=== PATIENT | female | born 1940 | race Caucasian/White ===

== ENCOUNTER 2017-08-09 11:10 | Inpatient (IN) | payer OTHER ==
[~2017-08-09] VITALS: Ht 167.6 cm; Wt 101.8 kg
[2017-08-09] MEDS ORDERED: SODIUM CHLORIDE 0.9% 1,000 ML IVB ONE (11:53)
[2017-08-09 12:07] LABS: Basophils # (auto) 0.1 uL; Basophils % (auto) 0.8 % (0.0-2.0); Eosinophils # (auto) 0 uL; Hematocrit 54.5 % (36.0-46.0); Lymphocytes % (auto) 22.6 % (10.0-50.0); Mean Corpuscular Hemoglobin 32.5 pg (28.0-32.0); Mean Corpuscular Volume 98.5 fL (80.0-100.0); Monocytes # (auto) 1.2 uL; Monocytes % (auto) 8.9 % (0.0-12.0); Neutrophils # (auto) 9.1 uL; Neutrophils % (auto) 67.7 % (37.0-80.0); Nucleated Red Blood Cells % 0.2 %; Platelet Count (auto) 291 10^3/uL (140-450); Red Blood Cells 5.54 10^6/uL (4.0-5.20); Red Cell Distribution Width 15.6 % (11.8-14.3); White Blood Cell 13.4 10^3/uL (4.4-10.8)
[2017-08-09 12:30] LABS: BUN/Creatinine Ratio 30.9; Bilirubin, Total 1.5 mg/dL (0.2-1.0); Calcium 10.5 mg/dL (8.5-10.1); Magnesium 2.7 mg/dL (1.6-2.6); Potassium 3.7 mmol/L (3.5-5.1); Total Protein 9.5 g/dL (6.4-8.2)
[2017-08-09] MEDS ORDERED: SODIUM CHLORIDE 0.9% 1,000 ML IV ONE (13:30)
[2017-08-09] MEDS ORDERED: cefTRIAXone 1GM/10ml IVPUSH 10 ML IV ONE (13:30)
[2017-08-09 13:47] LABS: INR 1.23 (0.9-1.15); Partial Thromboplastin Time 30.9 sec (22.64-33.71); Prothrombin Time 13.4 sec (9.37-12.3)
[2017-08-09 13:53] LABS: Lactic Acid w/Reflex 3.3 mmol/L (0.4-2.0)
[2017-08-09 14:25] LABS: Urine Bacteria NONE SEEN /hpf (None Seen); Urine Blood Negative /uL (Negative); Urine Specific Gravity 1.024 (1.001-1.035); Urine WBC 1 /hpf (0 - 5)
[2017-08-09] MEDS ORDERED: PROMETHAZINE HCL 25 MG/ML 1ML IV PRN (15:15)
[2017-08-09] MEDS ORDERED: ACETAMINOPHEN 500 MG TAB PO PRN (15:15)
[2017-08-09] MEDS ORDERED: TEMAZEPAM 15 MG CAP PO PRN (15:15)
[2017-08-09] MEDS ORDERED: LABETALOL HCL 5 MG/ML ML 20ML VIAL IV PRN (15:15)
[2017-08-09] MEDS ORDERED: LORazepam 0.5 MG TAB PO PRN (15:15)
[2017-08-09] MEDS ORDERED: NITROGLYCERIN 0.4 MG SL TAB SL PRN (15:15)
[2017-08-09 15:31] LABS: Cholesterol 352 mg/dL (< 200); Creatine Kinase IFCC 55 U/L (26-192); HDL Cholesterol 43 mg/dL (40-59); LDL Cholesterol 275 mg/dL (< 100); Triglycerides 175 mg/dL (< 150)
[2017-08-09 15:42] LABS: Folate (Folic Acid) > 24.00 ng/mL (5.38-24)
[2017-08-09] MEDS ORDERED: ASPirin 81 mg TAB PO SCH (15:45)
[2017-08-09] MEDS: SODIUM CHLORIDE 0.9% 1,000 ML IV SCH (15:55)
[2017-08-09] MEDS ORDERED: LEVOFLOXACIN 500MG 100 ML IV ONE (16:00)
[2017-08-09] MEDS ORDERED: ASPirin 81 mg TAB NG ONE (16:30)
[2017-08-09] MEDS ORDERED: LORazepam 2MG/ML-1ML VIAL IV PRN (16:45)
[2017-08-09] MEDS ORDERED: AMLO5TAB2 PO (18:04)
[2017-08-09] MEDS ORDERED: TRAM50TA2 PO (18:04)
[2017-08-09] MEDS ORDERED: NAPR375T27 PO (18:04)
[2017-08-09] MEDS ORDERED: LEVO175T33 PO (18:04)
[2017-08-09 19:12] VITALS: BP 135/76
[2017-08-09] MEDS ORDERED: ACETAMINOPHEN 650 MG RECT SUPP PR PRN (19:15)
[2017-08-09 22:00] VITALS: BP 134/72
[2017-08-09] MEDS ORDERED: ATORVASTATIN 20 MG TAB PO SCH (22:00)
[2017-08-09] MEDS: ATORVASTATIN 20 MG TAB PO SCH (22:44)
[2017-08-09] MEDS: CLINDAMYCIN 600MG IV 50 ML IV SCH (22:44)
[2017-08-10] MEDS: SODIUM CHLORIDE 0.9% 1,000 ML IV SCH (03:34)
[2017-08-10 05:00] VITALS: BP 135/72
[2017-08-10] MEDS: CLINDAMYCIN 600MG IV 50 ML IV SCH ×3 (06:15→22:55)
[2017-08-10 07:27] LABS: Basophils # (auto) 0 uL; Basophils % (auto) 0.3 % (0.0-2.0); Eosinophils # (auto) 0 uL; Hematocrit 44.6 % (36.0-46.0); Hemoglobin 14.8 g/dL (12.2-16.2); Lymphocytes # (auto) 2.3 uL; Lymphocytes % (auto) 17.5 % (10.0-50.0); Mean Corpuscular Hemoglobin 33.1 pg (28.0-32.0); Mean Corpuscular Hgb Conc. 33.2 g/dL (32.0-36.0); Mean Corpuscular Volume 99.9 fL (80.0-100.0); Monocytes # (auto) 1.4 uL; Monocytes % (auto) 10.3 % (0.0-12.0); Neutrophils # (auto) 9.7 uL; Neutrophils % (auto) 71.9 % (37.0-80.0); Nucleated Red Blood Cells % 0.1 %; Platelet Count (auto) 222 10^3/uL (140-450); Red Blood Cells 4.47 10^6/uL (4.0-5.20); Red Cell Distribution Width 15.9 % (11.8-14.3); White Blood Cell 13.4 10^3/uL (4.4-10.8)
[2017-08-10 07:29] VITALS: BP 125/62
[2017-08-10 07:45] LABS: Albumin 3.4 g/dL (3.4-5.0); BUN/Creatinine Ratio 39.6; Bilirubin, Total 1.2 mg/dL (0.2-1.0); Calcium 9.4 mg/dL (8.5-10.1); Potassium 3.1 mmol/L (3.5-5.1); Total Protein 7.8 g/dL (6.4-8.2)
[2017-08-10 08:00] VITALS: BP 125/62
[2017-08-10] MEDS ORDERED: LEVOFLOXACIN 250MG 50 ML IV SCH (10:00)
[2017-08-10] MEDS: ASPirin 300 MG RECTAL SUPP PR SCH (10:00)
[2017-08-10] MEDS: LEVOFLOXACIN 500MG 100 ML IV SCH (10:39)
[2017-08-10] MEDS: PANTOPRAZOLE 40 MG/10 ML VIAL IV SCH (10:39)
[2017-08-10] MEDS: ENOXAPARIN SOD 40 MG/0.4 ML SYRINGE SC SCH (10:40)
[2017-08-10 11:46] VITALS: BP 120/80
[2017-08-10] MEDS: MORPHINE SULFATE 4 MG/ML SYR/VIAL IV PRN (14:26)
[2017-08-10] MEDS ORDERED: SOD CHL 0.45% 1,000 ML IV SCH (15:30)
[2017-08-10] MEDS ORDERED: Fibersource Hn 1 Liter GT SCH (15:45)
[2017-08-10 16:35] VITALS: BP 131/72
[2017-08-10] MEDS: FREE WATER GT SCH (18:34)
[2017-08-10] MEDS: HYDROcodone-ACET 5/325MG TAB PO PRN (21:12)
[2017-08-10 21:55] VITALS: BP 147/78
[2017-08-10] MEDS: ATORVASTATIN 20 MG TAB PO SCH (22:55)
[2017-08-11] VITALS (7 sets, daily range): BP systolic 103–149; BP diastolic 61–74
[2017-08-11] MEDS: FREE WATER GT SCH ×5 (00:27→20:18)
[2017-08-11] MEDS: CLINDAMYCIN 600MG IV 50 ML IV SCH ×3 (06:28→22:44)
[2017-08-11 06:50] LABS: Basophils # (auto) 0.1 uL; Basophils % (auto) 0.5 % (0.0-2.0); Eosinophils # (auto) 0.1 uL; Eosinophils % (auto) 0.4 % (0.0-7.0); Hematocrit 39.8 % (36.0-46.0); Hemoglobin 13.2 g/dL (12.2-16.2); Lymphocytes # (auto) 2.4 uL; Mean Corpuscular Hemoglobin 33.1 pg (28.0-32.0); Mean Corpuscular Volume 100.1 fL (80.0-100.0); Monocytes # (auto) 1.1 uL; Monocytes % (auto) 9.1 % (0.0-12.0); Nucleated Red Blood Cells % 0.2 %; Platelet Count (auto) 211 10^3/uL (140-450); Red Blood Cells 3.98 10^6/uL (4.0-5.20); White Blood Cell 11.6 10^3/uL (4.4-10.8)
[2017-08-11 07:04] LABS: Albumin 3.4 g/dL (3.4-5.0); Calcium 9.2 mg/dL (8.5-10.1)
[2017-08-11 07:07] LABS: BUN/Creatinine Ratio 31.3
[2017-08-11 07:17] LABS: Bilirubin, Total 1.2 mg/dL (0.2-1.0); Total Protein 7.3 g/dL (6.4-8.2)
[2017-08-11] MEDS: PANTOPRAZOLE 40 MG/10 ML VIAL IV SCH (10:01)
[2017-08-11] MEDS: ASPirin 300 MG RECTAL SUPP PR SCH (10:01)
[2017-08-11] MEDS: LEVOFLOXACIN 500MG 100 ML IV SCH (10:02)
[2017-08-11] MEDS: ENOXAPARIN SOD 40 MG/0.4 ML SYRINGE SC SCH (10:02)
[2017-08-11] MEDS: POTASSIUM CHLORIDE 20 MEQ in D5W 5% 1,000 ML IV SCH (15:11)
[2017-08-11] MEDS: MORPHINE SULFATE 4 MG/ML SYR/VIAL IV PRN ×2 (15:55→16:43)
[2017-08-11] MEDS: CLOPIDOGREL BISULFATE 75 MG TAB NG SCH (17:22)
[2017-08-11] MEDS: ATORVASTATIN 20 MG TAB PO SCH (22:43)
[2017-08-12] VITALS (7 sets, daily range): BP systolic 103–132; BP diastolic 60–76
[2017-08-12] MEDS: POTASSIUM CHLORIDE 20 MEQ in D5W 5% 1,000 ML IV SCH ×2 (03:10→16:11)
[2017-08-12] MEDS: CLINDAMYCIN 600MG IV 50 ML IV SCH ×3 (05:12→21:38)
[2017-08-12] MEDS: LACTULOSE 20Gm/30ML SOLN PO PRN (06:53)
[2017-08-12 07:02] LABS: Basophils # (auto) 0.1 uL; Basophils % (auto) 0.6 % (0.0-2.0); Eosinophils # (auto) 0.3 uL; Eosinophils % (auto) 2.7 % (0.0-7.0); Hematocrit 37.1 % (36.0-46.0); Hemoglobin 12.3 g/dL (12.2-16.2); Lymphocytes # (auto) 2.6 uL; Lymphocytes % (auto) 26.5 % (10.0-50.0); Mean Corpuscular Hemoglobin 32.9 pg (28.0-32.0); Mean Corpuscular Hgb Conc. 33.3 g/dL (32.0-36.0); Mean Corpuscular Volume 99.1 fL (80.0-100.0); Neutrophils # (auto) 5.9 uL; Neutrophils % (auto) 60.2 % (37.0-80.0); Nucleated Red Blood Cells % 0.3 %; Platelet Count (auto) 187 10^3/uL (140-450); Red Blood Cells 3.74 10^6/uL (4.0-5.20); Red Cell Distribution Width 15.6 % (11.8-14.3); White Blood Cell 9.7 10^3/uL (4.4-10.8)
[2017-08-12 07:18] LABS: Albumin 2.9 g/dL (3.4-5.0); BUN/Creatinine Ratio 32.1; Calcium 8.7 mg/dL (8.5-10.1); Potassium 3.3 mmol/L (3.5-5.1)
[2017-08-12 07:21] LABS: Bilirubin, Total 0.6 mg/dL (0.2-1.0); Total Protein 6.5 g/dL (6.4-8.2)
[2017-08-12] MEDS ORDERED: ASPirin 81 mg TAB PO SCH (10:00)
[2017-08-12] MEDS: CLOPIDOGREL BISULFATE 75 MG TAB NG SCH (10:03)
[2017-08-12] MEDS: LEVOFLOXACIN 500MG 100 ML IV SCH (10:03)
[2017-08-12] MEDS: ENOXAPARIN SOD 40 MG/0.4 ML SYRINGE SC SCH (10:04)
[2017-08-12] MEDS: PANTOPRAZOLE 40 MG/10 ML VIAL IV SCH (10:04)
[2017-08-12] MEDS: HYDROcodone-ACET 5/325MG TAB PO PRN ×2 (14:56→21:38)
[2017-08-12] MEDS ORDERED: POTASSIUM CHL 20MEQ/100ML 100 ML IV ONE (17:30)
[2017-08-12] MEDS: ATORVASTATIN 20 MG TAB PO SCH (21:38)
[2017-08-13 05:43] VITALS: BP 114/66
[2017-08-13] MEDS: CLINDAMYCIN 600MG IV 50 ML IV SCH ×3 (05:44→22:22)
[2017-08-13] MEDS: POTASSIUM CHLORIDE 20 MEQ in D5W 5% 1,000 ML IV SCH ×2 (05:44→19:07)
[2017-08-13 06:45] LABS: BUN/Creatinine Ratio 27.7; Calcium 8.7 mg/dL (8.5-10.1); Potassium 3.6 mmol/L (3.5-5.1)
[2017-08-13 09:00] VITALS: BP 95/67
[2017-08-13] MEDS: CLOPIDOGREL BISULFATE 75 MG TAB NG SCH (09:27)
[2017-08-13] MEDS: ENOXAPARIN SOD 40 MG/0.4 ML SYRINGE SC SCH (09:27)
[2017-08-13] MEDS: LEVOFLOXACIN 500MG 100 ML IV SCH (09:27)
[2017-08-13] MEDS: PANTOPRAZOLE 40 MG/10 ML VIAL IV SCH (09:28)
[2017-08-13] MEDS: LACTULOSE 20Gm/30ML SOLN PO PRN (09:30)
[2017-08-13] MEDS: HYDROcodone-ACET 5/325MG TAB PO PRN ×2 (11:46→20:11)
[2017-08-13 12:00] VITALS: BP 96/66
[2017-08-13] MEDS: ALBUTEROL SULF 2.5 MG/0.5ML(0.5%) NEB SOLN NEB PRN (13:44)
[2017-08-13 16:00] VITALS: BP 116/66
[2017-08-13] MEDS: Boost Breeze 8 Ounces PO SCH (18:15)
[2017-08-13 20:00] VITALS: BP 105/65
[2017-08-13 22:00] VITALS: BP 117/74
[2017-08-13] MEDS: ATORVASTATIN 20 MG TAB PO SCH (22:22)
[2017-08-14] MEDS: MORPHINE SULFATE 4 MG/ML SYR/VIAL IV PRN ×2 (00:15→08:45)
[2017-08-14 05:00] VITALS: BP 125/76
[2017-08-14] MEDS: CLINDAMYCIN 600MG IV 50 ML IV SCH ×2 (05:29→14:20)
[2017-08-14 08:00] VITALS: BP 116/70
[2017-08-14] MEDS: Boost Breeze 8 Ounces PO SCH ×2 (08:46→12:47)
[2017-08-14] MEDS: POTASSIUM CHLORIDE 20 MEQ in D5W 5% 1,000 ML IV SCH (08:46)
[2017-08-14 09:00] VITALS: BP 116/70
[2017-08-14] MEDS: PANTOPRAZOLE 40 MG/10 ML VIAL IV SCH (09:44)
[2017-08-14] MEDS: LEVOFLOXACIN 500MG 100 ML IV SCH (09:44)
[2017-08-14] MEDS: ENOXAPARIN SOD 40 MG/0.4 ML SYRINGE SC SCH (09:44)
[2017-08-14] MEDS: CLOPIDOGREL BISULFATE 75 MG TAB NG SCH (09:44)
[2017-08-14] MEDS: ALBUTEROL SULF 2.5 MG/0.5ML(0.5%) NEB SOLN NEB PRN (11:57)
[2017-08-14 12:25] VITALS: BP 95/51
[2017-08-14 16:49] VITALS: BP 118/77
== END 2017-08-14 16:00 | DRG 871 ==
LOC: ER 11:10 → EDBD 11:10 → TELE 11:11 → TELE-EAST 16:48
PROVIDERS: ADMIT Internal Medicine; ATTEND Internal Medicine
DX: A41.9 Sepsis, unspecified organism (principal); I63.9 Cerebral infarction, unspecified; N17.0 Acute kidney failure with tubular necrosis; G93.41 Metabolic encephalopathy; E46 Unspecified protein-calorie malnutrition; J18.1 Lobar pneumonia, unspecified organism; L89.153 Pressure ulcer of sacral region, stage 3; E87.0 Hyperosmolality and hypernatremia; G81.91 Hemiplegia, unspecified affecting right dominant side; E87.1 Hypo-osmolality and hyponatremia; N39.0 Urinary tract infection, site not specified; I11.0 Hypertensive heart disease with heart failure; I50.9 Heart failure, unspecified; M19.90 Unspecified osteoarthritis, unspecified site; E78.5 Hyperlipidemia, unspecified; E87.6 Hypokalemia; Z79.899 Other long term (current) drug therapy; F17.200 Nicotine dependence, unspecified, uncomplicated
CPT/HCPCS: 36415; 51702; 70450; 70551; 71045; 80048; 80053; 80061; 80320; 81001; 82550; 82607; 82746; 82962; 83605; 83735; 83880; 84443; 84484; 85025; 85610; 85730; 87040; 87086; 92610; 93005; 93306; 93886; 94640; 95819; 96361; 96374; 97163; C9113; J1956; J3480; J3490

== ENCOUNTER 2019-01-17 12:09 | Inpatient (IN) | payer OTHER ==
[~2019-01-17] VITALS: Ht 160 cm; Wt 65.2 kg
[~2019-01-17 12:09] MED LIST: ASPI-404 PO; LEVO100T8 PO; LEVO175T33 PO; LISI-646 PO; WARF4TAB33 PO
[2019-01-17 13:22] LABS: Basophils # (auto) 0.1 uL; Basophils % (auto) 1.1 % (0.0-2.0); Eosinophils # (auto) 0.2 uL; Eosinophils % (auto) 2.4 % (0.0-7.0); Hematocrit 33.9 % (36.0-46.0); Hemoglobin 11.2 g/dL (12.2-16.2); Lymphocytes % (auto) 20.7 % (10.0-50.0); Mean Corpuscular Volume 85.1 fL (80.0-100.0); Monocytes % (auto) 10.3 % (0.0-12.0); Neutrophils # (auto) 6.2 uL; Neutrophils % (auto) 65.5 % (37.0-80.0); Platelet Count (auto) 338 10^3/uL (140-450); Red Blood Cells 3.98 10^6/uL (4.0-5.20); White Blood Cell 9.5 10^3/uL (4.4-10.8)
[2019-01-17] MEDS ORDERED: PANT40TA2 PO (13:26)
[2019-01-17] MEDS ORDERED: APIX2.5T PO (13:26)
[2019-01-17] MEDS ORDERED: ATOR20TA50 PO (13:26)
[2019-01-17 13:47] LABS: Alanine Aminotransferase 14 U/L (13-56); Albumin 3.5 g/dL (3.4-5.0); Anion Gap 4 (5-15); Aspartate Aminotransferase 18 U/L (15-37); BUN/Creatinine Ratio 25.2; Blood Urea Nitrogen 27 mg/dL (7-18); Calcium 9.3 mg/dL (8.5-10.1); Carbon Dioxide 26 mmol/L (21-32); Chloride 108 mmol/L (98-107); GFR African American 64 mL/min; GFR Non-African American 53 mL/min; Glucose 140 mg/dL (74-106); Potassium 3.9 mmol/L (3.5-5.1); Sodium 138 mmol/L (136-145)
[2019-01-17 13:52] LABS: Alkaline Phosphatase 109 U/L (45-117); Bilirubin, Total 0.8 mg/dL (0.2-1.0); Total Protein 7.4 g/dL (6.4-8.2)
[2019-01-17 15:14] LABS: Urine Bacteria FEW /hpf (None Seen); Urine Blood 1+ /uL (Negative); Urine Hyaline Cast MOD /lpf (0 - 2); Urine Mucus FEW (None Seen); Urine Specific Gravity 1.016 (1.001-1.035); Urine WBC 153 /hpf (0 - 5); Urine WBC Clumps PRESENT /hpf (None Seen)
[2019-01-17] MEDS ORDERED: LABETALOL HCL 5 MG/ML ML 20ML VIAL IV PRN (16:15)
[2019-01-17] MEDS ORDERED: cefTRIAXone 1GM/50ML D5W 50 ML IV ONE (16:15)
[2019-01-17] MEDS ORDERED: TEMAZEPAM 15 MG CAP PO PRN (16:15)
[2019-01-17] MEDS ORDERED: MORPHINE SULF INJ 2 MG/ML SYRINGE 1ML IV PRN (16:15)
[2019-01-17] MEDS ORDERED: NITROGLYCERIN 0.4 MG SL TAB SL PRN (16:15)
[2019-01-17] MEDS ORDERED: LACTULOSE 20Gm/30ML SOLN PO PRN (16:15)
[2019-01-17] MEDS ORDERED: DEXTROSE (50%) 50ML SYRG IV PRN (16:15)
[2019-01-17] MEDS: SODIUM CHLORIDE 0.9% 1,000 ML IV SCH ×2 (16:42→20:27)
[2019-01-17 17:25] VITALS: BP 125/62
[2019-01-17] MEDS: ACCU-CHEK COMFORT CURVE STRIP VI SCH ×2 (17:25→22:29)
--- NOTE | 2019-01-17 17:55 | NUR ---
Telemetry admit from WILLI INTERIANO admitted to Telemetry unit after SBAR received from HERMANN Lezama. Patient oriented to MICHAEL PHILIP, primary RN, unit, room, bed, and unit policies regarding patient care and visiting hours. Patient now on continuous telemetry monitoring, tele box #[id number] and telemetry reading on arrival to unit is SB56. Patient placed on bedside oxygen at 2L NC, weighed by bedscale and encouraged to call if they need something. All questions and concerns addressed, patient verbalized understanding. Note:
--- NOTE | 2019-01-17 19:18 | NUR ---
CLOSING SHIFT NOTE: Report given to NOC Parish MCCRARY. Endorsed care of patient.
[2019-01-17] MEDS: traMADol HCL 50 MG TAB PO PRN (20:27)
[2019-01-17 21:30] VITALS: BP 142/62
[2019-01-17] MEDS: ONDANSETRON HCL 4 MG/2 ML VIAL IV PRN (23:43)
[2019-01-18 05:35] VITALS: BP_SYST 130; BP_SYST 134; BP_SYST 162; BP_DIAS 65; BP_DIAS 75; BP_DIAS 81
[2019-01-18] MEDS: ACCU-CHEK COMFORT CURVE STRIP VI SCH ×4 (06:54→22:00)
[2019-01-18 07:27] LABS: Cholesterol 100 mg/dL (< 200); HDL Cholesterol 38 mg/dL (40-59); LDL Cholesterol 46 mg/dL (< 100); Triglycerides 94 mg/dL (< 150)
[2019-01-18 08:00] VITALS: BP 134/74
--- NOTE | 2019-01-18 08:00 | NUR ---
OPENING SHIFT NOTE ASSUMED CARE OF PT. PT ASLEEP IN BED. NO DISTRESS NOTED. BED IN LOWEST POSITION. CALL LIGHT WITHIN REACH. SIDE RAILS ARE UP X2. WILL CONTINUE TO MONITOR.
[2019-01-18] MEDS ORDERED: ENOXAPARIN SOD 40 MG/0.4 ML SYRINGE SC SCH (10:00)
[2019-01-18] MEDS: ASPirin 81 mg TAB PO SCH (10:57)
[2019-01-18] MEDS: cefTRIAXone 1GM/50ML D5W 50 ML IV SCH (10:57)
[2019-01-18 12:00] VITALS: BP_SYST 130; BP_SYST 136; BP_SYST 168; BP_DIAS 53; BP_DIAS 66; BP_DIAS 75
[2019-01-18] MEDS: APIXABAN 2.5 MG TAB PO SCH ×2 (12:00→22:36)
[2019-01-18] MEDS: traMADol HCL 50 MG TAB PO PRN ×2 (12:01→20:47)
[2019-01-18] MEDS: ONDANSETRON HCL 4 MG/2 ML VIAL IV PRN (12:01)
[2019-01-18] MEDS: SODIUM CHLORIDE 0.9% 1,000 ML IV SCH ×2 (12:12→22:37)
[2019-01-18] MEDS ORDERED: IOHEXOL 350 MG/ML 100ML IJ ONE ×2 (12:17→12:37)
[2019-01-18] MEDS: ACETAMINOPHEN 500 MG TAB PO PRN (16:51)
--- NOTE | 2019-01-18 20:50 | NUR ---
Tramadol 50mg i po given for c/o pain 02/12.
[2019-01-18 22:00] VITALS: BP 127/97
[2019-01-19 05:00] VITALS: BP 140/68
[2019-01-19 05:48] LABS: Basophils # (auto) 0.1 uL; Eosinophils # (auto) 0.5 uL; Eosinophils % (auto) 4.3 % (0.0-7.0); Hematocrit 32.7 % (36.0-46.0); Hemoglobin 10.9 g/dL (12.2-16.2); Lymphocytes # (auto) 2.3 uL; Lymphocytes % (auto) 20.9 % (10.0-50.0); Mean Corpuscular Hemoglobin 28.3 pg (28.0-32.0); Mean Corpuscular Hgb Conc. 33.3 g/dL (32.0-36.0); Mean Corpuscular Volume 85.2 fL (80.0-100.0); Monocytes # (auto) 1.3 uL; Monocytes % (auto) 12.1 % (0.0-12.0); Neutrophils # (auto) 6.7 uL; Neutrophils % (auto) 61.7 % (37.0-80.0); Platelet Count (auto) 316 10^3/uL (140-450); Red Blood Cells 3.84 10^6/uL (4.0-5.20); Red Cell Distribution Width 15.2 % (11.8-14.3); White Blood Cell 10.9 10^3/uL (4.4-10.8)
[2019-01-19] MEDS: LEVOTHYROXINE SODIUM 25 MCG TAB PO SCH (05:48)
[2019-01-19] MEDS: LEVOTHYROXINE SODIUM 112 MCG TAB PO SCH (05:48)
[2019-01-19 05:57] LABS: Albumin 2.8 g/dL (3.4-5.0); Calcium 8.9 mg/dL (8.5-10.1); Potassium 3.7 mmol/L (3.5-5.1)
[2019-01-19 06:00] LABS: BUN/Creatinine Ratio 16.3; Bilirubin, Total 0.4 mg/dL (0.2-1.0); Total Protein 6.5 g/dL (6.4-8.2)
[2019-01-19] MEDS: ACCU-CHEK COMFORT CURVE STRIP VI SCH (06:01)
[2019-01-19] MEDS: traMADol HCL 50 MG TAB PO PRN (06:01)
--- NOTE | 2019-01-19 07:46 | NUR ---
Opening Patient is in bed, asleep, bed in lowest position,call light within reach. No distress noted at this time. IV fluids are running at 100 NS as ordered. Patient has no had a bowel movement since 01/16 will educate and talk to patient to get baseline, and see if we need additional medications for this. Carotid doppler is negative Head ct negative CXR mild cardiomegaly chest ct negative for PE, mild bibasilar atelectasis, with mild R hydronephrosis Trops negative x 4 EF 50% Extremity study venous is negative UA shown 4+ leuks antibiotics on board HGB a1c is 5.3 (will speak with MD patient has been refusing some of the blood glucose checking, will verify if this is needed) rbc 3.84 hgb 10.9 orthostatic vitals will be completed again today her blood pressure increased when standing. will continue to monitor this patient
[2019-01-19 08:21] VITALS: BP 151/87
[2019-01-19] MEDS: SODIUM CHLORIDE 0.9% 1,000 ML IV SCH ×3 (09:16→20:49)
[2019-01-19] MEDS: APIXABAN 2.5 MG TAB PO SCH ×2 (09:16→22:56)
[2019-01-19] MEDS: cefTRIAXone 1GM/50ML D5W 50 ML IV SCH (09:16)
[2019-01-19] MEDS: ASPirin 81 mg TAB PO SCH (09:16)
[2019-01-19 11:46] VITALS: BP 146/81
[2019-01-19 16:59] VITALS: BP 136/79
--- NOTE | 2019-01-19 19:30 | NUR ---
OPENING SHIFT NOTE ASSUMED CARE OF PT. PT awake and in bed. No s/sx pain or distress at this time. Bed in lowest position. Pt has nurse call light within her reach. HOB rails up x2. This RN will monitor pt's care and condition q1h. Pt talkative.
[2019-01-19 22:00] VITALS: BP 168/63
[2019-01-20 05:00] VITALS: BP 152/88
[2019-01-20] MEDS: LEVOTHYROXINE SODIUM 25 MCG TAB PO SCH (06:53)
[2019-01-20] MEDS: LEVOTHYROXINE SODIUM 112 MCG TAB PO SCH (06:53)
[2019-01-20] MEDS: traMADol HCL 50 MG TAB PO PRN ×3 (06:54→21:28)
[2019-01-20 09:02] VITALS: BP 150/87
[2019-01-20] MEDS: ASPirin 81 mg TAB PO SCH (09:35)
[2019-01-20] MEDS: APIXABAN 2.5 MG TAB PO SCH ×2 (09:35→21:27)
[2019-01-20] MEDS: cefTRIAXone 1GM/50ML D5W 50 ML IV SCH (09:35)
--- NOTE | 2019-01-20 12:12 | NUR ---
ASKED BULL DRIVER TO CALL IN UROLOGY CONSULT.
[2019-01-20 12:56] VITALS: BP 159/75
[2019-01-20] MEDS: SODIUM CHLORIDE 0.9% 1,000 ML IV SCH (13:03)
[2019-01-20] MEDS: ACETAMINOPHEN 500 MG TAB PO PRN ×2 (15:04→23:43)
--- NOTE | 2019-01-20 16:34 | NUR ---
DR DELA CRUZ SAW PATIENT AND DISCUSSED POC. REQUESTS URINE CULTURE RESULTS. CALLED LAB.
--- NOTE | 2019-01-20 16:39 | NUR ---
LAB REPORTS URINE CULTURE RESULTS ARE STILL PENDING, SO FAR GRAM NEGATIVE BACTERIA ARE PRESENT AND THEY ARE RULING OUT MORE PATHOGENS.
[2019-01-20 16:46] VITALS: BP 154/79
[2019-01-20 22:00] VITALS: BP 162/94
[2019-01-21] MEDS: SODIUM CHLORIDE 0.9% 1,000 ML IV SCH ×3 (00:12→20:12)
[2019-01-21] MEDS ORDERED: cloNIDine HCL 0.1 MG TAB PO ONE (01:15)
[2019-01-21 05:00] VITALS: BP 155/85
[2019-01-21 05:58] LABS: Basophils # (auto) 0.1 uL; Basophils % (auto) 1.3 % (0.0-2.0); Eosinophils # (auto) 0.7 uL; Eosinophils % (auto) 6.5 % (0.0-7.0); Hematocrit 34.8 % (36.0-46.0); Hemoglobin 11.6 g/dL (12.2-16.2); Lymphocytes # (auto) 2.8 uL; Lymphocytes % (auto) 25.8 % (10.0-50.0); Mean Corpuscular Hemoglobin 28.1 pg (28.0-32.0); Mean Corpuscular Hgb Conc. 33.4 g/dL (32.0-36.0); Mean Corpuscular Volume 84.3 fL (80.0-100.0); Monocytes # (auto) 1.3 uL; Monocytes % (auto) 12.1 % (0.0-12.0); Neutrophils % (auto) 54.3 % (37.0-80.0); Nucleated Red Blood Cells % 0.2 %; Platelet Count (auto) 346 10^3/uL (140-450); Red Blood Cells 4.13 10^6/uL (4.0-5.20); Red Cell Distribution Width 15.5 % (11.8-14.3)
[2019-01-21 06:28] LABS: Potassium 3.7 mmol/L (3.5-5.1)
[2019-01-21] MEDS: LEVOTHYROXINE SODIUM 25 MCG TAB PO SCH (06:30)
[2019-01-21] MEDS: LEVOTHYROXINE SODIUM 112 MCG TAB PO SCH (06:31)
[2019-01-21 06:33] LABS: BUN/Creatinine Ratio 16.3; Calcium 9.4 mg/dL (8.5-10.1); Magnesium 1.9 mg/dL (1.6-2.6)
[2019-01-21] MEDS: traMADol HCL 50 MG TAB PO PRN ×2 (07:27→20:43)
--- NOTE | 2019-01-21 07:49 | NUR ---
PT REPORTS SHE IS IN 7/10 PAIN IN HIP, PRN PAIN MEDICATION GIVEN, WILL CONTINUE TO MONITOR.
--- NOTE | 2019-01-21 08:11 | NUR ---
CALLED LAB FOR URINE CULTURE RESULTS, LAB REPORTS IT'S ECOLI ESBL, AND SHE WILL FINALIZE REPORT. PT REPORTS CONSTIPATION, WILL GIVE LACTULOSE PRN. CALLED PBX AND ASKED THEM TO [facility] TO COME WORK WITH PATIENT.
--- NOTE | 2019-01-21 08:14 | NUR ---
PT REPORTS SHE WILL NOT HAVE TRANSPORTATION TODAY IF SHE IS DISCHARGED. SHE REPORTS THE OVERHEAD DISTRIBUTION ENGINEER FOR HER ASSISTED LIVING IS OFF MONDAYS AND HER DAUGHTERS FOOT IS BROKEN AND SHE IS UNABLE TO DRIVE.
[2019-01-21 09:00] VITALS: BP 152/87
[2019-01-21] MEDS: cefTRIAXone 1GM/50ML D5W 50 ML IV SCH (09:22)
[2019-01-21] MEDS: ASPirin 81 mg TAB PO SCH (09:23)
[2019-01-21] MEDS: APIXABAN 2.5 MG TAB PO SCH ×2 (09:23→21:45)
--- NOTE | 2019-01-21 11:13 | NUR ---
CALLED DR DELA CRUZ, REPORTED URINE CAND S RESULTS. NEW ORDERS FOR MEROPENEM 1 GRAM IV Q 8 HRS INPATIENT, AND CONSULT FOR HOME HEALTH FOR IV ABX, MEROPENEM I GRAM IV DAILY FOR 2 WEEKS.
[2019-01-21] MEDS ORDERED: MEROPENEM 1GM IVPB 100 ML IV ONE (11:30)
--- NOTE | 2019-01-21 11:46 | NUR ---
SPOKE WITH DR DELA CRUZ AGAIN, NEW ORDERS FOR MIDLINE AND DC ROCEPHIN.
--- NOTE | 2019-01-21 12:36 | NUR ---
I faxed home IV ATB/home health order to [facility] and [facility].
--- NOTE | 2019-01-21 12:53 | NUR ---
Nutrition Assessment Notes Please see attached link for complete assessment Est. Needs BW (68 kg): 3624-0490 kcal (23-25 kcal/kgBW), 68-74 gms pro (1.0-1.1 gms/kgBW). Will continue to monitor pertinent labs and reassess nutrient need prn Addendum: 01/21/19 at [address] Amended: Links added.
[2019-01-21 13:00] VITALS: BP 153/87
[2019-01-21] MEDS ORDERED: MEROPENEM 1GM IVPB 100 ML IV SCH (14:00)
--- NOTE | 2019-01-21 14:49 | NUR ---
I received a message from [facility] letting me know that they can not accept this patient. I faxed home health/IV ATB order to [facility] asking for other contracted home health agencies.
--- NOTE | 2019-01-21 15:24 | NUR ---
Midline catheter A 4Fr 20 cm Midline catheter inserted easily into the right basilic vein. pt care nurse notified.
--- NOTE | 2019-01-21 15:34 | NUR ---
I spoke with Cathleen at [facility] [phone] to give her an update on the status of the patient-I let her know that we are still working on an accepting home health agency and will let them know.
--- NOTE | 2019-01-21 15:43 | NUR ---
I called [facility] [phone] and left message for machine adjuster leader case trim to call me regarding other contracted home health agencies as well as needing authorization for home health.
--- NOTE | 2019-01-21 15:45 | NUR ---
Dc'd Tolliver per MD request. 1100 mls clear yellow urine noted. Pt tolerated procedure well. Midline placed luis. Dr Hanks notified pt has no transportation today, MD aware, pt will dc tomorrow.
--- NOTE | 2019-01-21 16:01 | NUR ---
I received a message from [facility] Autocad Technician Florence letting me know that patient was previously with [facility]-order faxed to [facility].
--- NOTE | 2019-01-21 16:19 | NUR ---
I called [facility] [phone] and was told that their contract with [facility] has ended and they can not accept this patient. I called [facility]UCCA Anode Worker Florence [phone] and left a message letting her know.
--- NOTE | 2019-01-21 16:41 | NUR ---
I received a message from [place] Plumber Cub [place] letting me know that I can reach out to [facility] or [facility] (no longer seeing patients in this area). Faxed home health/IV ATB order to [facility].
[2019-01-21 17:00] VITALS: BP 183/108
[2019-01-21] MEDS: ACETAMINOPHEN 500 MG TAB PO PRN (17:25)
--- NOTE | 2019-01-21 19:01 | NUR ---
Pt reports she has voided twice. Pt reports 8/10 pain in head and DEVELOPMENT DISABILITY SPECIALIST reports temp as 100.3, PRN Tylenol given. DEVELOPMENT DISABILITY SPECIALIST reports bp as 183/108, PRN bp meds given.
--- NOTE | 2019-01-21 19:43 | NUR ---
RECEIVED PATIENT FROM DAY SHIFT RN. PATIENT RESTING IN BED. NO S/S OF DISTRESS NOTED. C/O PAIN @ /10. WILL COME BACK FOR PAIN MEDICATION LATER. REASSESSED BP 181/86, HR 88. PATIENT FEELING BETTER NOW. DENIED HEADACHE. POC INSTRUCTED AND ENCOURAGED PATIENT TO CALL FOR CV TECH IF NEEDED. BED IN LOWEST POSITION WITH SIDE RAILS UP X 2. CALL MCGRAW WITHIN REACH. ALARM ON. CONTINUE TO MONITOR FOR CHANGES Q1H AND PRN.
[2019-01-21] MEDS ORDERED: ERTAPENEM SOD INJ 1 GM in SODIUM CHL 0.9% 50 ML IV ONE (20:00)
--- NOTE | 2019-01-21 20:45 | NUR ---
MEDICATED PATIENT FOR PAIN @ 12/12. CONTINUE TO MONITOR.
[2019-01-21 22:00] VITALS: BP 149/83
--- NOTE | 2019-01-22 02:51 | NUR ---
PATIENT SLEEPING. NO S/S OF DISTRESS NOTED. CONTINUE CARE.
[2019-01-22] MEDS: LEVOTHYROXINE SODIUM 112 MCG TAB PO SCH (07:00)
[2019-01-22] MEDS: LEVOTHYROXINE SODIUM 25 MCG TAB PO SCH (07:00)
--- NOTE | 2019-01-22 07:15 | NUR ---
OPENING SHIFT NOTE REPORT RECEIVED ASSUMED CARE OF PT. ASLEEP In bed. No s/sx pain or distress at this time. Bed in lowest position. call light within her reach. HOB rails up x2. This RN will monitor pt's care and condition q1h.
[2019-01-22 09:00] VITALS: BP 152/74
[2019-01-22] MEDS: APIXABAN 2.5 MG TAB PO SCH ×2 (09:43→21:39)
[2019-01-22] MEDS: ASPirin 81 mg TAB PO SCH (09:43)
--- NOTE | 2019-01-22 09:53 | NUR ---
I spoke with [facility] Nurse Clinical Marcy regarding our difficulty in finding a home health agency to accept this patient. She said she has reached out to [facility] [phone]-she will give me a call back to let me know if they are able to accommodate this patient.
[2019-01-22] MEDS: ONDANSETRON HCL 4 MG/2 ML VIAL IV PRN (09:55)
--- NOTE | 2019-01-22 09:55 | NUR ---
C/O NAUSEA,HEAD ACHE AND PAIN,MEDICATED SEE eMAR
[2019-01-22] MEDS: traMADol HCL 50 MG TAB PO PRN ×3 (09:56→23:27)
[2019-01-22] MEDS: ERTAPENEM SOD INJ 1 GM in SODIUM CHL 0.9% 50 ML IV SCH (09:57)
--- NOTE | 2019-01-22 10:04 | NUR ---
PT Patient refused to be OOB or do PT with c/o LAROSE and SA. Notified HERMANN Ventura and will give patient medication. Addendum: 01/22/19 at 1009 by AVRIL REEVES PTT Amended: Links added.
[2019-01-22 10:57] VITALS: BP 181/86
[2019-01-22 13:05] VITALS: BP 147/86
--- NOTE | 2019-01-22 14:12 | NUR ---
PT Patient continue to refuse PT with the same c/o LAROSE and requested for medication. HERMANN Ventura was notified of pt's refusal to be OOB and request for LAROSE medication. Addendum: 01/22/19 at 1413 by AVRIL REEVES PTT Amended: Links added.
[2019-01-22] MEDS: ACETAMINOPHEN 500 MG TAB PO PRN ×2 (14:37→21:39)
--- NOTE | 2019-01-22 15:04 | NUR ---
assessment Patient is a 78 year old female who is alert and oriented. Prior to admission patient resided at [facility] and functioned with assistance of staff. Patients PCP is Dr Chicas. Patient has a fww for home use. Patient has a ss consult for home IV ABX. Per Evy at [facility] patient cant return to facility on IV ABX. Patient has agreed to SNF for IV ABX. RN has been notified and a new order for SNF will be put in. Patient and her daughter Mee verbalized understanding and agreed to discharge plan to [facility]. Addendum: 01/24/19 at 1508 by Ryanne HELMS Amended: Links added.
--- NOTE | 2019-01-22 16:00 | NUR ---
RECEIVED CALL FROM PER EXECUTIVE DIRECTOR CONTRACT SHOP THAT PATIENT CAN NOT GO BACK TO [facility] [place] DUE TO IVABX,PATIENT HAS TO GO TO SNF FOR IVABX
--- NOTE | 2019-01-22 16:04 | NUR ---
I spoke with [facility] Credit Card Clerk Marcy to let her know that patient can't go to her assisted living facility on IV ATB and that we need to send her to SNF for the IV ATB therapy. Per Marcy patient was previously at [facility]. I also spoke with patient's nurse Audrey to let her know-she is going to reach out to MD to request SNF order.
--- NOTE | 2019-01-22 16:07 | NUR ---
DR.M DELA CRUZ HERE INFORMED OF PATIENT UNABLE TO DISCHARGE TO [facility] DUE TO IVABX PER PER COMPUTER APPLICATIONS DEVELOPER,RECEIVED VERBAL ORDER TO ARRANGED TRANSFER TO SNF,SEE WRITTEN ORDER TO CONSULT [facility] FOR SNF.
--- NOTE | 2019-01-22 16:14 | NUR ---
I spoke with [place] Clinical Appeals Reviewer Marcy, she provided me with [facility] authorization number [id number]. I let her know that patient/family refuses for her to go back to [facility].
--- NOTE | 2019-01-22 16:29 | NUR ---
Discharge planning per consult received, patient has orders for SNF placement. Referral faxed to [facility] as family does not want patient at [facility]. Acceptance pending. Addendum: 01/22/19 at 1639 by SIVAKUMAR ANDERSON Amended: Links added.
[2019-01-22 16:42] VITALS: BP 158/95
[2019-01-22] MEDS: SODIUM CHLORIDE 0.9% 1,000 ML IV SCH ×2 (18:01→18:02)
--- NOTE | 2019-01-22 19:45 | NUR ---
RECEIVED PATIENT FROM DAY SHIFT RN. PATIENT RESTING IN BED. NO S/S OF DISTRESS NOTED. C/O HEADACHE @ 10 AFTER MEDICATION RECEIVED EARLIER. STATED FEELING BETTER NOW. DENIED NAUSEA AT THIS TIME. POC INSTRUCTED AND ENCOURAGED PATIENT TO CALL FOR PHARMACY INTERN IF NEEDED. BED IN LOWEST POSITION WITH SIDE RAILS UP X 2. CALL MCGRAW WITHIN REACH. ALARM ON. CONTINUE TO MONITOR FOR CHANGES Q1H AND PRN.
--- NOTE | 2019-01-22 21:39 | NUR ---
PATIENT C/O PAIN @ 01/12, TRAMADOL NOT DUE FOR NOW, TYLENOL GIVEN ORDERED. CONTINUE TO MONITOR.
--- NOTE | 2019-01-22 23:28 | NUR ---
MEDICATED PATIENT FOR PAIN @ 11/12. CONTINUE TO MONITOR.
[2019-01-22 23:48] VITALS: BP 144/82
--- NOTE | 2019-01-23 01:03 | NUR ---
PATIENT SLEEPING. NO S/S OF DISTRESS NOTED. CONTINUE CARE.
[2019-01-23] MEDS: SODIUM CHLORIDE 0.9% 1,000 ML IV SCH ×2 (02:12→11:10)
[2019-01-23 05:48] VITALS: BP 153/69
[2019-01-23] MEDS: LEVOTHYROXINE SODIUM 112 MCG TAB PO SCH (06:21)
[2019-01-23] MEDS: LEVOTHYROXINE SODIUM 25 MCG TAB PO SCH (06:22)
--- NOTE | 2019-01-23 06:22 | NUR ---
PATIENT RESTING IN BED WITH EYES CLOSED. NO S/S OF DISTRESS NOTED. MORNING MEDICATION GIVEN ORDERED. CONTINUE TO MONITOR.
--- NOTE | 2019-01-23 08:15 | NUR ---
Patient sitting in bed, awake, oriented x4. No acute distress noted.
[2019-01-23 09:00] VITALS: BP 158/94
--- NOTE | 2019-01-23 10:45 | NUR ---
Received a call back from Avionic Technician Evelyn that [facility] will call back if there's a bed availability by 6:00 pm today. Avionic Technician to call back for update.
[2019-01-23] MEDS: APIXABAN 2.5 MG TAB PO SCH (11:02)
[2019-01-23] MEDS: ERTAPENEM SOD INJ 1 GM in SODIUM CHL 0.9% 50 ML IV SCH (11:03)
[2019-01-23] MEDS: ASPirin 81 mg TAB PO SCH (11:03)
--- NOTE | 2019-01-23 11:20 | NUR ---
Received a call back from Field Observer Evelyn that patient got a bed at [facility] Rm 513 Bed 1 but will be available after 6:00 pm today. Will inform MD. Addendum: 01/23/19 at 1253 by Renita Ang RN Dr. Chicas is the admitting MD.
[2019-01-23] MEDS: traMADol HCL 50 MG TAB PO PRN (11:39)
--- NOTE | 2019-01-23 11:39 | NUR ---
Ultram PO given for pain level at 6/10.
--- NOTE | 2019-01-23 11:50 | NUR ---
Dr. Hanks at bedside. made aware patient go accepted at [facility] but bed will be available after 6:[address] Hanks ordered to resume the discharge orders for SNF placement today, will continue with the IV antibiotics Invanz daily at [facility]. Addendum: 01/23/19 at 1254 by Renita Ang RN got accepted
--- NOTE | 2019-01-23 12:00 | NUR ---
Dr. Hanks ordered Invanz IV daily via midline for 12 days at [facility].
--- NOTE | 2019-01-23 12:50 | NUR ---
Paged Tire Installer Evelyn.
[2019-01-23 13:00] VITALS: BP 153/94
--- NOTE | 2019-01-23 13:23 | NUR ---
Called patient's daughter Mee (P# [phone]). Mee made aware patient will be transferred to [facility] after 6:00 pm today. Mee said Concrete Mixer Truck Driver Ryanne told her that patient's insurance will not cover the transportation so she will be the one to transfer the patient to the facility, she stated if there's a way that the time of transfer be expedited because after 6:00 pm is late for her, if patient can be picked up for transfer tomorrow morning. Explained to Mee that isolation room will be available after 6:00 pm at [facility] today, as per Concrete Mixer Truck Driver, not sure if insurance will cover the patient's extra stay in the hospital and if the [facility] room will still be available for the patient tomorrow. Will call Mee again for updates.
[2019-01-23] MEDS ORDERED: MEROPENEM 1GM IVPB 100 ML IV SCH (15:00)
--- NOTE | 2019-01-23 15:15 | NUR ---
Oleomargarine Maker Evelyn called back. Evelyn said the patient will have to pay for the transportation for transfer to [facility] because it's not covered by the insurance. Evelyn made aware daughter Mee said patient cannot afford the transportation fee so she will be the one to spanish moss picker the patient for transfer to [facility] but asked if the patient can be picked up before 6:00 pm because after 6:00 pm is too late for her. Evelyn to call patient's daughter Mee.
--- NOTE | 2019-01-23 15:27 | NUR ---
Administrative Analyst Evelyn called back that daughter Mee is coming over at 4:30 pm today to crab picker the patient for transfer to [facility] between 5 pm to 5:30 pm. Patient goping to room 513 Bed 1, admitting MD Dr. Chicas, call for report P# [phone].
--- NOTE | 2019-01-23 15:30 | NUR ---
Called Pharmacy for Meropenem IV antibiotic.
--- NOTE | 2019-01-23 16:10 | NUR ---
Called [facility] (P# [phone]). Report given to Nurse Cathy that patient has a right upper arm midline inserted on 01/21/2019 for IV antibiotics for 12 days, patient needs assist getting up from bed to chair, has periods of incontinence, has ESBL urine, daughter will last picker and transfer the patient to [facility], daughter is aware that [facility] room is available at 5 pm to 5:30 pm.
--- NOTE | 2019-01-23 16:45 | NUR ---
Patient's daughter Mee came over to medicinal plant picker the patient for transfer to [facility].
--- NOTE | 2019-01-23 17:05 | NUR ---
Discharge instructions given as ordered. Encourage to follow up with PMD as instructed. All questions and concerns addressed. Patient verbalized understanding. Medication reconciliation form completed and copy given to patient. Patient discharged with midline on right upper arm for IV antibiotics daily for 12 days at [facility]. Telemetry unit returned to ICU. Patient taken to vehicle via wheelchair with all personal belongings, accompanied by staff and family member. No distress noted at time of departure.
[2019-01-23 17:10] VITALS: BP 152/90
--- NOTE | 2019-01-23 17:55 | NUR ---
Discharge planning per SS consult received, patient has orders to dc to SNF. Referral faxed to [facility], placed a follow up call, spoke with Rogelio and was advised they were accepting patient under Dr. Chicas to room 513-1. Received auth from [facility] for SNF-[id number]. Patient does not have non-emergent transportation as a covered benefit per [facility], and per daughter Mee cannot afford $275 for transportation so daughter will transport via private vehicle to SNF. ad terminal makeup operator time was for 4:30 pm. Addendum: 01/23/19 at 1759 by SIVAKUMAR ANDERSON Amended: Links added.
== END 2019-01-23 17:05 | DRG 872 ==
LOC: EDBD 12:09 → ER 12:11 → TELE 12:12 → TELE-WESTW 17:48
PROVIDERS: ADMIT Internal Medicine; ATTEND Internal Medicine
PROC: 05HY33Z Insertion of Infusion Device into Upper Vein, Percutaneous Approach (ICD-10-PCS; principal; 2019-01-21)
DX: A41.9 Sepsis, unspecified organism (principal); N13.6 Pyonephrosis; I10 Essential (primary) hypertension; E78.00 Pure hypercholesterolemia, unspecified; E03.9 Hypothyroidism, unspecified; R00.1 Bradycardia, unspecified; E86.0 Dehydration; I48.91 Unspecified atrial fibrillation; D63.8 Anemia in other chronic diseases classified elsewhere; R32 Unspecified urinary incontinence; F02.80 Dementia in other diseases classified elsewhere, unspecified severity, without behavioral disturbance, psychotic disturbance, mood disturbance, and anxiety; G30.9 Alzheimer's disease, unspecified; Z16.12 Extended spectrum beta lactamase (ESBL) resistance; I11.0 Hypertensive heart disease with heart failure; I48.0 Paroxysmal atrial fibrillation; I50.9 Heart failure, unspecified; I70.0 Atherosclerosis of aorta; Z86.73 Personal history of transient ischemic attack (TIA), and cerebral infarction without residual deficits; Z90.49 Acquired absence of other specified parts of digestive tract; Z90.710 Acquired absence of both cervix and uterus; Z79.82 Long term (current) use of aspirin; Z79.899 Other long term (current) drug therapy; E11.65 Type 2 diabetes mellitus with hyperglycemia
CPT/HCPCS: 36415; 51702; 70450; 71045; 71260; 74177; 80048; 80053; 80061; 81001; 82550; 82962; 83036; 83735; 83880; 84443; 84484; 85025; 85379; 87040; 87086; 87088; 87186; 93005; 93886; 93970; 94761; 97110; 97116; 97530; G0378; J0696; J1335; J2185; J2405

== ENCOUNTER → 2020-12-14 | Outpatient (CLI) | payer OTHER ==
[~2020-12-14] MED LIST changes: +APIX2.5T PO; -ASPI-404 PO; +ASPI-543 PO; +ATOR20TA50 PO; -LEVO175T33 PO; -LISI-646 PO; +LISI20TA28 PO; +PANT40TA2 PO; -WARF4TAB33 PO
[2020-12-14 10:18] LABS: Basophils # (auto) 0.1 10 ^3/uL (0-0.2); Basophils % (auto) 1.1 % (0.0-2.0); Eosinophils # (auto) 0.4 10 ^3/uL (0-0.8); Eosinophils % (auto) 4.1 % (0.0-7.0); Hematocrit 29.1 % (36.0-46.0); Hemoglobin 9.1 g/dL (12.2-16.2); Lymphocytes # (auto) 2.9 10 ^3/uL (0.4-5.4); Lymphocytes % (auto) 32.9 % (10.0-50.0); Mean Corpuscular Hemoglobin 20.2 pg (28.0-32.0); Mean Corpuscular Hgb Conc. 31.5 g/dL (32.0-36.0); Mean Corpuscular Volume 64.1 fL (80.0-100.0); Monocytes # (auto) 0.9 10 ^3/uL (0-1.3); Monocytes % (auto) 10.3 % (0.0-12.0); Neutrophils # (auto) 4.6 10 ^3/uL (1.6-8.6); Neutrophils % (auto) 51.6 % (37.0-80.0); Nucleated Red Blood Cells % 0.1 %; Red Blood Cells 4.53 10^6/uL (4.0-5.20); Red Cell Distribution Width 21.2 % (11.8-14.3); White Blood Cell 8.9 10^3/uL (4.4-10.8)
[2020-12-14 10:24] LABS: Urine Bacteria FEW /hpf (None Seen); Urine Blood TRACE /uL (Negative); Urine Hyaline Cast FEW /lpf (0 - 2); Urine Specific Gravity 1.007 (1.001-1.035); Urine WBC 237 /hpf (0 - 5); Urine WBC Clumps PRESENT /hpf (None Seen)
[2020-12-14 10:35] LABS: INR 1.03 (0.9-1.15); Partial Thromboplastin Time 27.5 sec (23.0-31.2)
[2020-12-14 10:59] LABS: Potassium 4.9 mmol/L (3.5-5.1)
[2020-12-14 11:12] LABS: Albumin 3.7 g/dL (3.4-5.0); BUN/Creatinine Ratio 15.2; Bilirubin, Total 0.5 mg/dL (0.2-1.0); Calcium 9.7 mg/dL (8.5-10.1); Total Protein 7.8 g/dL (6.4-8.2)
== END | disposition home or self-care (01) ==
LOC: LAB 09:52
PROVIDERS: ATTEND Nurse Practitioner
DX: I10 Essential (primary) hypertension (principal); E78.5 Hyperlipidemia, unspecified; E03.9 Hypothyroidism, unspecified
CPT/HCPCS: 36415; 80053; 80061; 81001; 84443; 85025; 85049; 85610; 85730

== ENCOUNTER → 2021-07-29 | Outpatient (CLI) | payer OTHER ==
[2021-07-29 14:38] LABS: Urine Bacteria FEW /hpf (None Seen); Urine Blood Negative /uL (Negative); Urine Mucus FEW (None Seen); Urine Specific Gravity 1.015 (1.001-1.035); Urine WBC 334 /hpf (0 - 5); Urine WBC Clumps PRESENT /hpf (None Seen)
== END | disposition home or self-care (01) ==
LOC: LAB 13:51
PROVIDERS: ATTEND Urology
DX: N39.42 Incontinence without sensory awareness (principal)
CPT/HCPCS: 81001; 87086

== ENCOUNTER → 2021-09-09 | Outpatient (CLI) | payer OTHER ==
[2021-09-09 10:40] LABS: Albumin 3.5 g/dL (3.4-5.0); Calcium 9.8 mg/dL (8.5-10.1); Potassium 4.6 mmol/L (3.5-5.1)
[2021-09-09 10:44] LABS: BUN/Creatinine Ratio 12.7; Bilirubin, Total 0.5 mg/dL (0.2-1.0); Total Protein 7.6 g/dL (6.4-8.2)
== END | disposition home or self-care (01) ==
LOC: LAB 09:38
PROVIDERS: ATTEND Internal Medicine
DX: I10 Essential (primary) hypertension (principal)
CPT/HCPCS: 36415; 80053

== ENCOUNTER 2021-09-16 14:39 | Emergency (ER) | payer OTHER ==
[~2021-09-16] VITALS: Ht 154.9 cm; Wt 59.0 kg
[2021-09-16 16:10] LABS: Eosinophils # (auto) 0.3 10 ^3/uL (0-0.8); Mean Corpuscular Hemoglobin 25.1 pg (28.0-32.0); Monocytes # (auto) 1.4 10 ^3/uL (0-1.3); Nucleated Red Blood Cells % 0.1 %; White Blood Cell 10.5 10^3/uL (4.4-10.8)
[2021-09-16 16:11] LABS: Basophils # (auto) 0 10 ^3/uL (0-0.2); Basophils % (auto) 0.4 % (0.0-2.0); Eosinophils % (auto) 2.7 % (0.0-7.0); Hematocrit 35.2 % (36.0-46.0); Hemoglobin 11.3 g/dL (12.2-16.2); Lymphocytes % (auto) 28.2 % (10.0-50.0); Mean Corpuscular Hgb Conc. 32.3 g/dL (32.0-36.0); Mean Corpuscular Volume 77.8 fL (80.0-100.0); Monocytes % (auto) 13.1 % (0.0-12.0); Neutrophils # (auto) 5.8 10 ^3/uL (1.6-8.6); Neutrophils % (auto) 55.6 % (37.0-80.0); Red Blood Cells 4.52 10^6/uL (4.0-5.20); Red Cell Distribution Width 18.2 % (11.8-14.3)
[2021-09-16 16:28] LABS: Albumin 3.2 g/dL (3.4-5.0); Calcium 9.6 mg/dL (8.5-10.1); Potassium 4.8 mmol/L (3.5-5.1)
[2021-09-16 16:31] LABS: BUN/Creatinine Ratio 15.7; Bilirubin, Total 0.4 mg/dL (0.2-1.0); Total Protein 7.2 g/dL (6.4-8.2)
[2021-09-16] MEDS ORDERED: SODIUM CHLORIDE 0.9% 1,000 ML IV ONE (16:45)
[2021-09-16] MEDS ORDERED: HYDROcodone-ACET 5/325MG TAB PO ONE (18:00)
[2021-09-16 20:44] VITALS: BP 106/67
[2021-09-16 21:25] LABS: Urine Bacteria MOD /hpf (None Seen); Urine Blood 3+ /uL (Negative); Urine Specific Gravity 1.008 (1.001-1.035); Urine WBC 97 /hpf (0 - 5); Urine WBC Clumps PRESENT /hpf (None Seen)
[2021-09-16] MEDS ORDERED: ACETAMINOPHEN 325 MG TAB PO ONE (23:15)
== END 2021-09-17 00:40 | disposition home or self-care (01) ==
LOC: ER 14:39 → EDBD 14:39 → ER 09-17 00:40
DX: R30.0 Dysuria (principal); R30.9 Painful micturition, unspecified; G89.18 Other acute postprocedural pain; R10.30 Lower abdominal pain, unspecified; I10 Essential (primary) hypertension; I48.91 Unspecified atrial fibrillation; Z86.73 Personal history of transient ischemic attack (TIA), and cerebral infarction without residual deficits; Z90.49 Acquired absence of other specified parts of digestive tract; Z90.89 Acquired absence of other organs; Z90.710 Acquired absence of both cervix and uterus; Z79.82 Long term (current) use of aspirin; Z79.899 Other long term (current) drug therapy
CPT/HCPCS: 36415; 74176; 80053; 81001; 85025; 96360; 99284; J7030

== ENCOUNTER → 2021-10-08 | Outpatient (CLI) | payer OTHER, MEDICARE ==
[2021-10-08 09:30] LABS: Basophils # (auto) 0.1 10 ^3/uL (0-0.2); Eosinophils # (auto) 0.3 10 ^3/uL (0-0.8); Neutrophils # (auto) 4.8 10 ^3/uL (1.6-8.6); Nucleated Red Blood Cells % 0.1 %; Red Cell Distribution Width 17.8 % (11.8-14.3)
[2021-10-08 09:32] LABS: Basophils % (auto) 1.8 % (0.0-2.0); Eosinophils % (auto) 3.6 % (0.0-7.0); Hematocrit 34.3 % (36.0-46.0); Hemoglobin 11.2 g/dL (12.2-16.2); Lymphocytes # (auto) 2.1 10 ^3/uL (0.4-5.4); Mean Corpuscular Hemoglobin 25.5 pg (28.0-32.0); Mean Corpuscular Hgb Conc. 32.6 g/dL (32.0-36.0); Mean Corpuscular Volume 78.1 fL (80.0-100.0); Monocytes % (auto) 11.9 % (0.0-12.0); Neutrophils % (auto) 57.7 % (37.0-80.0); Red Blood Cells 4.39 10^6/uL (4.0-5.20); White Blood Cell 8.3 10^3/uL (4.4-10.8)
[2021-10-08 09:34] LABS: Urine Bacteria NONE SEEN /hpf (None Seen); Urine Blood TRACE /uL (Negative); Urine Budding Yeast OCCASIONAL /hpf (None Seen); Urine Mucus FEW (None Seen); Urine WBC 596 /hpf (0 - 5); Urine WBC Clumps PRESENT /hpf (None Seen)
[2021-10-08 09:46] LABS: INR 1.27 (0.9-1.15); Partial Thromboplastin Time 30.2 sec (23.6-33.0)
[2021-10-08 09:59] LABS: Albumin 3.4 g/dL (3.4-5.0); Calcium 9.6 mg/dL (8.5-10.1); Potassium 4.7 mmol/L (3.5-5.1)
[2021-10-08 10:05] LABS: Bilirubin, Total 0.6 mg/dL (0.2-1.0); Total Protein 7.4 g/dL (6.4-8.2)
== END | disposition home or self-care (01) ==
LOC: LAB 09:12
PROVIDERS: ATTEND Student in an Organized Health Care Education/Training Program
DX: Z01.812 Encounter for preprocedural laboratory examination (principal)
CPT/HCPCS: 36415; 80053; 81001; 85025; 85610; 85730

== ENCOUNTER → 2021-10-21 | Outpatient (CLI) | payer OTHER ==
[~2021-10-21] MED LIST changes: +FUROSEMIDE 40 MG/4 ML VIAL ONE
== END | disposition home or self-care (01) ==
LOC: XYW 08:41
PROVIDERS: ATTEND Urology
DX: N13.30 Unspecified hydronephrosis (principal)
CPT/HCPCS: 78707; A9562; J1940

== ENCOUNTER 2021-11-04 10:46 | Inpatient (IN) | payer OTHER ==
[~2021-11-04] VITALS: Ht 162.6 cm; Wt 74.9 kg
[~2021-11-04 10:46] MED LIST changes: -FUROSEMIDE 40 MG/4 ML VIAL ONE
[2021-11-04 11:25] VITALS: BP 105/58
[2021-11-04 12:00] VITALS: BP 105/58
[2021-11-04] MEDS ORDERED: ONDANSETRON HCL 4 MG/2 ML VIAL IV PRN (12:30)
[2021-11-04] MEDS ORDERED: cefTRIAXone 1GM/50ML D5W 50 ML IV ONE (12:30)
[2021-11-04] MEDS ORDERED: OXY10CRT PO (13:28)
[2021-11-04] MEDS ORDERED: METO-158 PO (13:28)
[2021-11-04] MEDS ORDERED: NAP500T PO (13:28)
[2021-11-04] MEDS ORDERED: POM (13:28)
[2021-11-04] MEDS ORDERED: ARTISOL13 EACHEYE (13:28)
[2021-11-04] MEDS ORDERED: MULTTAB PO (13:31)
[2021-11-04] MEDS ORDERED: POTA10TA51 PO (13:31)
[2021-11-04] MEDS ORDERED: PRED1DRO OP (13:31)
[2021-11-04] MEDS ORDERED: WARF2TAB49 PO (13:33)
[2021-11-04] MEDS ORDERED: TIZA4CAP PO (13:33)
[2021-11-04] MEDS ORDERED: ACET-1156 PO (13:33)
[2021-11-04] MEDS: SODIUM CHLORIDE 0.9% 1,000 ML IV SCH (14:11)
[2021-11-04 14:12] LABS: Eosinophils # (auto) 0.1 10 ^3/uL (0-0.8); Monocytes # (auto) 1.1 10 ^3/uL (0-1.3); Nucleated Red Blood Cells % 0.1 %
[2021-11-04 14:13] LABS: Basophils # (auto) 0.2 10 ^3/uL (0-0.2); Basophils % (auto) 2.2 % (0.0-2.0); Eosinophils % (auto) 0.5 % (0.0-7.0); Hematocrit 34.2 % (36.0-46.0); Hemoglobin 11.1 g/dL (12.2-16.2); Lymphocytes # (auto) 2.3 10 ^3/uL (0.4-5.4); Lymphocytes % (auto) 20.9 % (10.0-50.0); Mean Corpuscular Hemoglobin 25.6 pg (28.0-32.0); Mean Corpuscular Hgb Conc. 32.5 g/dL (32.0-36.0); Mean Corpuscular Volume 78.8 fL (80.0-100.0); Monocytes % (auto) 9.6 % (0.0-12.0); Neutrophils # (auto) 7.3 10 ^3/uL (1.6-8.6); Neutrophils % (auto) 66.8 % (37.0-80.0); Red Blood Cells 4.35 10^6/uL (4.0-5.20); Red Cell Distribution Width 17.8 % (11.8-14.3)
[2021-11-04] MEDS: HYDROcodone-ACET 5/325MG TAB PO PRN ×2 (14:13→21:20)
[2021-11-04 14:20] LABS: INR 1.44 (0.9-1.15); Partial Thromboplastin Time 33.4 sec (23.6-33.0)
[2021-11-04 14:24] LABS: Calcium 9.5 mg/dL (8.5-10.1); Potassium 4.9 mmol/L (3.5-5.1)
[2021-11-04 14:28] LABS: BUN/Creatinine Ratio 13.8; Bilirubin, Total 0.6 mg/dL (0.2-1.0); Total Protein 6.9 g/dL (6.4-8.2)
[2021-11-04 16:00] VITALS: BP 122/66
[2021-11-04 22:00] VITALS: BP 139/62
[2021-11-04] MEDS: MORPHINE SULFATE INJ 2 MG/ml SYRG IV PRN (22:43)
[2021-11-05] VITALS (7 sets, daily range): BP systolic 118–145; BP diastolic 62–85
[2021-11-05] MEDS: SODIUM CHLORIDE 0.9% 1,000 ML IV SCH ×3 (05:03→06:59)
[2021-11-05] MEDS: MORPHINE SULFATE INJ 2 MG/ml SYRG IV PRN ×2 (05:06→21:50)
[2021-11-05 06:06] LABS: Basophils # (auto) 0.1 10 ^3/uL (0-0.2); Basophils % (auto) 0.9 % (0.0-2.0); Eosinophils # (auto) 0.3 10 ^3/uL (0-0.8); Nucleated Red Blood Cells % 0.2 %
[2021-11-05 06:10] LABS: Eosinophils % (auto) 2.8 % (0.0-7.0); Hematocrit 35.2 % (36.0-46.0); Hemoglobin 11.4 g/dL (12.2-16.2); Lymphocytes # (auto) 2.8 10 ^3/uL (0.4-5.4); Lymphocytes % (auto) 27.9 % (10.0-50.0); Mean Corpuscular Hemoglobin 25.8 pg (28.0-32.0); Mean Corpuscular Hgb Conc. 32.5 g/dL (32.0-36.0); Mean Corpuscular Volume 79.3 fL (80.0-100.0); Monocytes # (auto) 1.1 10 ^3/uL (0-1.3); Monocytes % (auto) 10.7 % (0.0-12.0); Neutrophils # (auto) 5.9 10 ^3/uL (1.6-8.6); Neutrophils % (auto) 57.7 % (37.0-80.0); Red Blood Cells 4.44 10^6/uL (4.0-5.20); Red Cell Distribution Width 17.8 % (11.8-14.3); White Blood Cell 10.2 10^3/uL (4.4-10.8)
[2021-11-05 06:18] LABS: INR 1.49 (0.9-1.15); Partial Thromboplastin Time 33.7 sec (23.6-33.0)
[2021-11-05 06:23] LABS: Calcium 9.3 mg/dL (8.5-10.1); Potassium 4.7 mmol/L (3.5-5.1)
[2021-11-05] MEDS: LEVOTHYROXINE SODIUM 100 MCG TAB PO SCH (06:58)
[2021-11-05] MEDS: PANTOPRAZOLE 40 MG TAB PO SCH (08:49)
[2021-11-05] MEDS: cefTRIAXone 1GM/50ML D5W 50 ML IV SCH (08:51)
[2021-11-05] MEDS ORDERED: LIDOCAINE 2%HCL (LOCAL ANESTH.) INJ 10ml MDV ONE (09:48)
[2021-11-05] MEDS ORDERED: fentaNYL CITRATE 100 MCG/2 ML VL ONE (09:56)
[2021-11-05] MEDS ORDERED: MIDAZOLAM HCL 2MG/2ML 2ml VIAL (1mg/ml) ONE (09:56)
[2021-11-05] MEDS: HYDROcodone-ACET 5/325MG TAB PO PRN ×2 (15:25→19:51)
[2021-11-05 18:24] LABS: Urine Bacteria MANY /hpf (None Seen); Urine Blood 3+ /uL (Negative); Urine Specific Gravity 1.019 (1.001-1.035); Urine WBC 1099 /hpf (0 - 5); Urine WBC Clumps PRESENT /hpf (None Seen)
[2021-11-06 05:00] VITALS: BP 108/63
[2021-11-06] MEDS: LEVOTHYROXINE SODIUM 100 MCG TAB PO SCH (06:06)
[2021-11-06] MEDS: cefTRIAXone 1GM/50ML D5W 50 ML IV SCH (08:46)
[2021-11-06] MEDS: PANTOPRAZOLE 40 MG TAB PO SCH (08:46)
[2021-11-06 09:00] VITALS: BP 135/56
[2021-11-06] MEDS: HYDROcodone-ACET 5/325MG TAB PO PRN (10:49)
[2021-11-06 13:00] VITALS: BP 138/61
[2021-11-06] MEDS: SODIUM CHLORIDE 0.9% 1,000 ML IV SCH (14:21)
[2021-11-06] MEDS: MORPHINE SULFATE INJ 2 MG/ml SYRG IV PRN ×2 (16:23→21:15)
[2021-11-06 17:00] VITALS: BP 124/67
[2021-11-06 20:00] VITALS: BP 146/80
[2021-11-06 22:00] VITALS: BP 146/80
[2021-11-07] VITALS (7 sets, daily range): BP systolic 110–131; BP diastolic 50–73
[2021-11-07] MEDS ORDERED: CIPR-173 PO (09:15)
[2021-11-07] MEDS: cefTRIAXone 1GM/50ML D5W 50 ML IV SCH (10:10)
[2021-11-07] MEDS: LEVOTHYROXINE SODIUM 100 MCG TAB PO SCH (10:10)
[2021-11-07] MEDS: PANTOPRAZOLE 40 MG TAB PO SCH (10:10)
[2021-11-07] MEDS: MORPHINE SULFATE INJ 2 MG/ml SYRG IV PRN (10:11)
[2021-11-07] MEDS: SODIUM CHLORIDE 0.9% 1,000 ML IV SCH ×2 (10:15→23:50)
[2021-11-07] MEDS: HYDROcodone-ACET 5/325MG TAB PO PRN (15:04)
[2021-11-08 05:00] VITALS: BP 114/72
[2021-11-08] MEDS: LEVOTHYROXINE SODIUM 100 MCG TAB PO SCH (06:08)
[2021-11-08 09:00] VITALS: BP 125/66
[2021-11-08] MEDS: PANTOPRAZOLE 40 MG TAB PO SCH (09:12)
[2021-11-08] MEDS: cefTRIAXone 1GM/50ML D5W 50 ML IV SCH (09:12)
[2021-11-08 09:34] LABS: Free T3 1.94 pg/mL (2.3-4.2); Free T4 (Free Thyroxine) 1.48 ng/dL (0.89-1.76)
[2021-11-08] MEDS: MORPHINE SULFATE INJ 2 MG/ml SYRG IV PRN ×2 (10:54→20:44)
[2021-11-08] MEDS ORDERED: IOHEXOL 350 MG/ML 100ML IJ ONE (11:38)
[2021-11-08] MEDS ORDERED: IOHEXOL 300 MG/ML 100ML BOTTLE IJ ONE (11:43)
[2021-11-08 13:00] VITALS: BP 140/91
[2021-11-08 14:04] LABS: Basophils # (auto) 0.1 10 ^3/uL (0-0.2); Neutrophils # (auto) 8.5 10 ^3/uL (1.6-8.6); Nucleated Red Blood Cells % 0.1 %
[2021-11-08 14:06] LABS: Basophils % (auto) 0.9 % (0.0-2.0); Eosinophils # (auto) 0.3 10 ^3/uL (0-0.8); Eosinophils % (auto) 2.8 % (0.0-7.0); Hematocrit 32.8 % (36.0-46.0); Hemoglobin 10.6 g/dL (12.2-16.2); Lymphocytes # (auto) 2.4 10 ^3/uL (0.4-5.4); Mean Corpuscular Hemoglobin 25.6 pg (28.0-32.0); Mean Corpuscular Hgb Conc. 32.3 g/dL (32.0-36.0); Mean Corpuscular Volume 79.4 fL (80.0-100.0); Monocytes # (auto) 1.3 10 ^3/uL (0-1.3); Monocytes % (auto) 10.1 % (0.0-12.0); Neutrophils % (auto) 67.2 % (37.0-80.0); Red Blood Cells 4.14 10^6/uL (4.0-5.20); Red Cell Distribution Width 17.8 % (11.8-14.3); White Blood Cell 12.7 10^3/uL (4.4-10.8)
[2021-11-08 14:17] LABS: BUN/Creatinine Ratio 15.7; Calcium 9.4 mg/dL (8.5-10.1); Potassium 4.6 mmol/L (3.5-5.1)
[2021-11-08] MEDS: SODIUM CHLORIDE 0.9% 1,000 ML IV SCH (16:30)
[2021-11-08 17:00] VITALS: BP 145/79
[2021-11-08 22:00] VITALS: BP 142/76
[2021-11-09 05:00] VITALS: BP 108/65
[2021-11-09] MEDS: MORPHINE SULFATE INJ 2 MG/ml SYRG IV PRN ×2 (05:53→20:38)
[2021-11-09] MEDS: LEVOTHYROXINE SODIUM 100 MCG TAB PO SCH (06:25)
[2021-11-09 09:00] VITALS: BP 109/66
[2021-11-09] MEDS: cefTRIAXone 1GM/50ML D5W 50 ML IV SCH (09:04)
[2021-11-09] MEDS: SODIUM CHLORIDE 0.9% 1,000 ML IV SCH (09:04)
[2021-11-09] MEDS: PANTOPRAZOLE 40 MG TAB PO SCH (09:04)
[2021-11-09 13:00] VITALS: BP 100/67
[2021-11-09 16:29] VITALS: BP 127/74
[2021-11-09 21:12] VITALS: BP 134/87
[2021-11-10] MEDS: LEVOTHYROXINE SODIUM 100 MCG TAB PO SCH (06:13)
[2021-11-10] MEDS: PANTOPRAZOLE 40 MG TAB PO SCH (08:50)
[2021-11-10] MEDS: cefTRIAXone 1GM/50ML D5W 50 ML IV SCH (08:50)
[2021-11-10] MEDS: HYDROcodone-ACET 5/325MG TAB PO PRN ×2 (08:50→17:57)
[2021-11-10 09:00] VITALS: BP 134/88
[2021-11-10 13:00] VITALS: BP 138/69
[2021-11-10] MEDS ORDERED: DOCUSATE SOD 100 MG CAP PO ONE (13:15)
[2021-11-10] MEDS ORDERED: LACTULOSE 20Gm/30ML SOLN PO ONE (13:15)
[2021-11-10 16:55] VITALS: BP 135/87
[2021-11-10 22:00] VITALS: BP 135/66
== END 2021-11-10 22:13 | DRG 690 ==
LOC: TELE-EAST 11:02 → EAST 12:18
PROVIDERS: ADMIT Internal Medicine; ATTEND Internal Medicine
PROC: 0T9330Z Drainage of Right Kidney Pelvis with Drainage Device, Percutaneous Approach (ICD-10-PCS; principal; 2021-11-05)
PROC: BT11YZZ Fluoroscopy of Right Kidney using Other Contrast (ICD-10-PCS; 2021-11-05)
PROC: BT41ZZZ Ultrasonography of Right Kidney (ICD-10-PCS; 2021-11-05)
DX: N13.6 Pyonephrosis (principal); D68.69 Other thrombophilia; I50.42 Chronic combined systolic (congestive) and diastolic (congestive) heart failure; I13.0 Hypertensive heart and chronic kidney disease with heart failure and stage 1 through stage 4 chronic kidney disease, or unspecified chronic kidney disease; I48.91 Unspecified atrial fibrillation; E03.9 Hypothyroidism, unspecified; D63.8 Anemia in other chronic diseases classified elsewhere; E78.5 Hyperlipidemia, unspecified; Z20.822 Contact with and (suspected) exposure to COVID-19; F03.90 Unspecified dementia, unspecified severity, without behavioral disturbance, psychotic disturbance, mood disturbance, and anxiety; Z66 Do not resuscitate; N18.30 Chronic kidney disease, stage 3 unspecified; Z87.442 Personal history of urinary calculi; Z79.899 Other long term (current) drug therapy; Z79.01 Long term (current) use of anticoagulants; Z86.73 Personal history of transient ischemic attack (TIA), and cerebral infarction without residual deficits
CPT/HCPCS: 36415; 71045; 74177; 74425; 76775; 76942; 80048; 80053; 81001; 84439; 84443; 84481; 85025; 85610; 85730; 87081; 87086; 97110; 97116; 97530; 99152; 99153; C2625; G0378; J0696; J2001; J2250; J2405

== ENCOUNTER → 2021-12-07 | Outpatient (CLI) | payer OTHER ==
[~2021-12-07] MED LIST changes: +ACET-1156 PO; +ACET-1158 PO; +ARTISOL13 EACHEYE; +CIPR-173 PO; +FURO1TAB31 PO; +METO-158 PO; +MULTTAB PO; +NAP500T PO; +NAPR-1334 PO; +OXY10CRT PO; +OXYB5TAB24 PO; +POTA10TA51 PO; +PRED1DRO OP; +TIZA4CAP PO; +TRAM50TA2 PO; +WARF2TAB49 PO
== END | disposition home or self-care (01) ==
LOC: LAB 08:47
PROVIDERS: ATTEND Urology
DX: Z01.812 Encounter for preprocedural laboratory examination (principal)
CPT/HCPCS: 36415; 82565; 84520